=== PATIENT | male | born 1965 | race Caucasian/White ===

== ENCOUNTER 2016-06-21 09:19 | Outpatient (CLI) | payer OTHER | END 2016-06-21 09:20 | disposition home or self-care (01) | DX: S62.635A Displaced fracture of distal phalanx of left ring finger, initial encounter for closed fracture (principal) ==

== ENCOUNTER 2017-07-16 09:22 | Outpatient (CLI) | payer OTHER ==
--- NOTE | 2017-07-16 12:44 | XRAY Report ---
THREE VIEW RIGHT FIRST TOE: 07/16/2017 CLINICAL INDICATION: Persistent pain three years post-injury. FINDINGS: AP, lateral, oblique views of the right great toe demonstrate moderate osteoarthritis of the first metacarpophalangeal joint. There is no evidence of acute fracture. No radiopaque foreign body is seen in the soft tissues. IMPRESSION: MODERATE OSTEOARTHRITIS. TD: 07/16/2017 12:43
== END 2017-07-16 09:23 | disposition home or self-care (01) ==
LOC: DI.S 09:22
PROVIDERS: ATTEND Registered Nurse
DX: M19.071 Primary osteoarthritis, right ankle and foot (principal)
CPT/HCPCS: 73660

== ENCOUNTER 2023-01-29 07:28 | Outpatient (CLI) | payer OTHER ==
--- NOTE | 2023-01-29 13:15 | MRI Report ---
PROCEDURE: HIP WO - LT INDICATIONS: SPRAIN OF LEFT HIP TECHNIQUE: Noncontrast coronal T1 spin echo and STIR through the bony pelvis. Coronal and axial T2 fast spin ec ho with fat saturation, sagittal T1 spin echo, and oblique axial T2 fast spin echo with fat saturatio n through the hip. COMPARISON: 01/22/2023 hip radiograph. FINDINGS: Image quality: Excellent. Bones and joints: Symmetric appearing bilateral hip joint osteoarthritic changes are seen with superi or joint space narrowing and subchondral sclerosis. No marrow edema. No intraosseous lesions or frac tures. No avascular necrosis of the femoral heads. Prominence of superior anterior left femoral hea d neck junction with subcortical cystic changes are seen which can be seen associated with cam-type f emoral acetabular impingement. The visualized lower lumbar spine appears normally aligned. Tendons: Distal left gluteus medius and minimus tendinosis at their insertions on greater trochanter is seen, without associated muscle atrophy. The iliopsoas tendon appears intact, without adjacent bu rsal fluid collections. Tendinosis and low-grade partial-thickness tear involving origins of hamstrin g tendons at ischial tuberosity is seen. Labrum and cartilage: There is fraying of superior anterior left hip labrum at 12 to 1:00 position harden ggestive of subtle superior anterior labral tear. Thinning of cartilage surface of left femoral head is seen. The alpha angle of the femur is within normal limits at less than 55 degrees. Soft tissues: Visualized muscles demonstrate normal bulk and internal signal. The proximal sciatic neurovascular bundle appears normal adjacent to the hamstring tendons. No free pelvic fluid. Bladde r wall thickness is normal. Genitourinary structures and bowel loops appear normal where visualized. IMPRESSION: 1. Symmetric appearing mild to moderate bilateral hip joint osteoarthritis. No pelvic or hip fracture . No evidence of avascular necrosis. Prominence of superior anterior left femoral head neck junction with subcortical cystic changes which can be seen associated with cam-type femoral acetabular impinge ment. 2. Distal left gluteus medius and minimus tendinosis. Tendinosis and low-grade partial-thickness tear involving hamstring tendon origins at ischial tuberosity. 3. Suggestion of subtle superior anterior left hip labral tear at 12 to 1:00 position. Reviewed by: Lukas Trivedi MD on 01/29/2023 1:14 PM PDT Approved by: Lukas Trivedi MD on 01/29/2023 1:14 PM PDT Station ID: [id number]
== END 2023-01-29 07:29 | disposition home or self-care (01) ==
LOC: DI 07:28
PROVIDERS: ATTEND Emergency Medicine
DX: S73.192A Other sprain of left hip, initial encounter (principal); M16.0 Bilateral primary osteoarthritis of hip; M67.854 Other specified disorders of tendon, left hip; S76.012A Strain of muscle, fascia and tendon of left hip, initial encounter

== ENCOUNTER 2023-07-07 15:00 | Emergency (ER) | payer OTHER ==
--- NOTE | 2023-07-07 17:12 | ED Physician Documentation ---
PD HPI HEAD INJURY - Stated complaint Stated Complaint: GLF/HEAD INJ - Chief complaint Chief Complaint: Trauma Hd/Nk - History obtained from History obtained from: Patient - History of Present Illness Mechanism of head injury: Fell Where head injury occurred: Home Timing - onset: Last night Location of injury: Back Quality of pain: Pain Associated symptoms: LOC, Neck pain (stiffness today is mild). No: Nausea / vomiting Symptoms improve with: Rest Symptoms worsen with: Palpation Contributing factors: No: Anticoagulated Similar symptoms before: Has not had sx before Recently seen: Not recently seen - Additional information Additional information: 57-year-old Rome Rayo reports that he was drinking last night and fell over backwards striking the back of his head and causing a laceration. He is uncertain whether he lost consciousness he feels well today his daughter came home and found him with blood on his head and asked him to go to the emergency department. He states that he has felt well most of the day today he did have what he felt was some hangover symptoms and these are now resolving. Review of Systems Constitutional: denies: Fever Eyes: denies: Decreased vision Ears: denies: Ear pain Nose: denies: Rhinorrhea / runny nose, Congestion Throat: denies: Sore throat Cardiac: denies: Chest pain / pressure, Palpitations Respiratory: denies: Dyspnea, Cough GI: denies: Abdominal Pain, Nausea, Vomiting, Constipation, Diarrhea : denies: Dysuria, Frequency Skin: denies: Rash Musculoskeletal: reports: Neck pain. denies: Back pain, Extremity pain Neurologic: reports: Headache, Head injury. denies: Generalized weakness, Focal weakness, Numbness, Difficulty speaking, Near syncope, Syncope, Seizure, Confused, Altered mental status, Unresponsive PD PAST MEDICAL HISTORY - Past Medical History Cardiovascular: None Respiratory: None Endocrine/Autoimmune: None GI: None : None HEENT: None Psych: None Musculoskeletal: None Derm: None - Past Surgical History Past Surgical History: No HEENT: Tonsil/Adenoidectomy - Present Medications Home Medications: Ambulatory Orders Medication Instructions Recorded Confirmed No Known Home Medications 07/07/23 07/07/23 - Allergies Allergies/Adverse Reactions: Allergies Allergy/AdvReac Type Severity Reaction Status Date / Time No Known Drug Allergies Allergy Unverified 07/07/23 15:49 - Social History Does the pt smoke?: No Smoking Status: Never smoker Does the pt drink ETOH?: Yes Does the pt have substance abuse?: Yes - Immunizations Immunizations are current?: Yes PD ED PE NORMAL - Vitals Vital signs reviewed: Yes (normal ) - General General: Alert and oriented X 3, No acute distress, Well developed/nourished - HEENT HEENT: PERRL, EOMI, Other (5cm stellate laceration to the occiput) - Neck Neck: Supple, no meningeal sign, No bony TTP, Other (good ROM without pain ) - Respiratory Respiratory: No respiratory distress - Derm Derm: Normal color, Warm and dry, No rash - Extremities Extremities: No deformity, No edema - Neuro Neuro: Alert and oriented X 3, 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, No motor deficit, No sensory deficit, Normal speech Eye Opening: Spontaneous Motor: Obeys Commands Verbal: Oriented GCS Score: 15 - Psych Psych: Normal mood, Normal affect Results - Vitals Vitals: Vital Signs - 24 hr 07/07/23 07/07/23 15:43 17:07 Temperature 36.3 C L Heart Rate 52 L 58 L Respiratory 16 18 Rate Blood Pressure 126/75 124/72 O2 Saturation 100 98 Oxygen O2 Source Room air Procedures - Laceration (location) scalp Length in cm: 5 Wound type: Stellate Neurovascular status: Sensory intact, Motor intact, Vascular intact Anesthesia: Lidocaine 1% Wound preparation: Hibiclens, Irrigated copiously NS, Debrided moderately, Wound explored, To the base Skin layer closure: [place] Other: Patient tolerated well, No complications, Neurovascular intact, Tetanus booster given PD Medical Decision Making - ED course Complexity details: considered differential, d/w patient ED course: 57-year-old male presents to the emerged part with a laceration to his occipital scalp after a fall last night after drinking. He has no tenderness to the bony cervical spine he does have a stiff neck he is moving it well. Radiographic analysis was not performed. The patient's scalp wound was cleansed and stapled patient tolerated this well and was given a tetanus booster. Departure - Departure Disposition: 01 Home, Self Care Clinical Impression: Occipital scalp laceration Qualifiers: Encounter type: initial encounter Qualified Code(s): S01.01XA - Laceration without foreign body of scalp, initial encounter Condition: Stable Instructions: ED Laceration Scalp Stitch Or Stap Follow-Up: Keith,[place] [facility], SENIOR QUALITY MANAGER [Primary Care Provider] - Comments: Rome, today it looks like the laceration to your head did not involve deeper structures and the expectation is that it should heal quite well. The kourtney will need to be removed in about 10 days. This can be done here in the emergency department or at your doctor's office. It does require a special device. Forms: PCP List
[2023-07-07 17:14] VITALS: O2SAT 98
[2023-07-07] MEDS: LIDOCAINE 1% 2 ML VIAL SUBQ STA (17:19)
[2023-07-07] MEDS: TETANUS/DIPHTHERIA/PERTUSSIS 0.5 ML SYRINGE IM ONE (18:05)
[2023-07-07 18:17] VITALS: BP 122/70
== END 2023-07-07 18:10 | disposition home or self-care (01) ==
LOC: ED 15:00
DX: S01.01XA Laceration without foreign body of scalp, initial encounter (principal); W19.XXXA Unspecified fall, initial encounter; Z23 Encounter for immunization
CPT/HCPCS: 12002; 90471; 99283